=== PATIENT | female | born 1990 | race Caucasian/White ===

== ENCOUNTER 2021-06-24 04:00 | Inpatient (IN) | payer BC, SELFPAY ==
[~2021-06-24] VITALS: Ht 157.5 cm; Wt 60.8 kg
[2021-06-24] MEDS ORDERED: LR 1,000 ML IV SCH ×2 (04:30→06:30)
[2021-06-24] MEDS ORDERED: CEFAZOLIN 2 GM IVPB PREMIX 50 ML IV ONE (04:30)
[2021-06-24] MEDS ORDERED: TERBUTALINE SULFATE 1 MG/ML VIAL SUBCUT ONE (04:30)
[2021-06-24 04:56] LABS: BASOPHILS % (AUTO) 0.4 % (0.0-2.0); EOSINOPHILS % (AUTO) 0.1 % (0.0-4.0); HEMATOCRIT 38.1 % (36-48); LYMPHOCYTES # (AUTO) 2.4 K/uL (1.0-5.5); LYMPHOCYTES % (AUTO) 18.2 % (20.5-51.5); MEAN CORPUSCULAR HEMOGLOBIN 32 pg (27-31); MEAN CORPUSCULAR HGB CONC 34 % (32-36); MEAN CORPUSCULAR VOLUME 94 fL (79.0-98.0); MONOCYTES # (AUTO) 0.7 K/uL (0.0-1.0); MONOCYTES % (AUTO) 5.4 % (1.7-9.3); NEUTROPHILS # (AUTO) 9.8 K/uL (1.8-7.7); NEUTROPHILS % (AUTO) 75.9 % (40.0-70.0); PLATELET COUNT (AUTO) 135 K/uL (130-430); RED BLOOD CELL COUNT(AUTO) 4.06 MIL/uL (4.2-6.2); RED CELL DISTRIBUTION WIDTH 13.2 % (9.0-15.0)
[2021-06-24] MEDS ORDERED: TEMAZEPAM 15 MG CAPSULE PO PRN (05:15)
[2021-06-24] MEDS ORDERED: MEASLES,MUMPS&RUBELLA VACC/PF 12500 UNIT/0.5 ML VIAL SUBQ PRN (05:15)
[2021-06-24] MEDS ORDERED: LANOLIN 7 GM OINT. TP PRN (05:15)
[2021-06-24] MEDS ORDERED: HYDROcodone/ACETAMIN 5-325 MG TAB (NORCO/ VICODIN) PO PRN (05:15)
[2021-06-24] MEDS ORDERED: BISACODYL 10 MG/SUPPOSITORY RC PRN (05:15)
[2021-06-24] MEDS ORDERED: OXYTOCIN/0.9 % SODIUM CHLORIDE 1,000 ML IV ONE (05:15)
[2021-06-24] MEDS ORDERED: RHO(D) IMMUNE GLOBULIN/MALTOSE 1500 UNITS/1.3 ML (WINHRO) IM PRN (05:15)
[2021-06-24] MEDS ORDERED: ANUSOL 1 EA SUPP.RECT (PREPARATION H) RC PRN (05:15)
[2021-06-24] MEDS ORDERED: OXYCODONE/ACETAMINOPHEN 5-325 TABLET PO PRN (05:15)
[2021-06-24] MEDS ORDERED: DIPH-TET-PERTUS Vaccine 0.5 ML VIAL (ADACEL) I.M. PRN (05:15)
[2021-06-24] MEDS ORDERED: DEXAMETHASONE SOD PHOSPHATE 4 MG/ML VIAL IVP ONE (05:38)
[2021-06-24] MEDS ORDERED: ePHEDrine sulfate 50 MG/ML VIAL IVP ONE (05:38)
[2021-06-24] MEDS ORDERED: LR 1,000 ML IV.SOLN IV ONE (05:38)
[2021-06-24] MEDS ORDERED: MORPHINE SULFATE 10MG/10ML PF AMP EP ONE (05:38)
[2021-06-24] MEDS ORDERED: METOCLOPRAMIDE HCL 10 MG/2 ML VIAL IVP ONE (05:38)
[2021-06-24] MEDS ORDERED: NALOXONE HCL 1 MG in NACL 0.9% 1,000 ML IV PRN (06:30)
[2021-06-24] MEDS ORDERED: DIPHENHYDRAMINE HCL 50 MG CAPSULE PO PRN (06:30)
[2021-06-24] MEDS ORDERED: HYDROmorphone 1 MG/ML INJ. CARTRIDGE IVP PRN (06:30)
[2021-06-24] MEDS ORDERED: KETOROLAC TROMETHAMINE 60 MG/2 ML VIAL IM PRN (06:30)
[2021-06-24] MEDS ORDERED: NALOXONE HCL 0.4 MG/ML AMP (NARCAN) IVP PRN ×3 (06:30)
[2021-06-24] MEDS ORDERED: HYDROmorphone 2 MG/ML VIAL IVP PRN (06:30)
[2021-06-24] MEDS ORDERED: ONDANSETRON HCL 4 MG/2 ML VIAL IVP PRN (06:30)
[2021-06-24] MEDS ORDERED: MORPHINE SULFATE 10MG/10ML PF AMP SP SCH (06:30)
[2021-06-24] MEDS ORDERED: DIPHENHYDRAMINE INJ 50 MG/ML VIAL IVP PRN (06:30)
[2021-06-24] MEDS ORDERED: MEPERIDINE HCL/PF 25 MG/ML DISP.SYRIN IVP PRN ×2 (06:30)
[2021-06-24 11:14] LABS: BILIRUBIN,URINE NEGATIVE (NEGATIVE); BLOOD, URINE TRACE (NEGATIVE); CLARITY/URINE CLEAR (CLEAR); COLOR,URINE YELLOW (YELLOW); GLUCOSE,URINE NEGATIVE (NEGATIVE); KETONES,URINE 3+ (NEGATIVE); LEUKOCYTE ESTERASE ,URINE NEGATIVE (NEGATIVE); NITRITE, URINE NEGATIVE (NEGATIVE); PROTEIN URINE TRACE (NEGATIVE); UROBILINOGEN,URINE 0.2 (0.2-1.0)
[2021-06-24 12:49] LABS: BACTERIA,URINE None Seen /HPF (None Seen); WBC,URINE 0-3 /HPF (0-3)
[2021-06-24 17:17] VITALS: BP_SYST 140
[2021-06-24] MEDS: SENNOSIDES/DOCUSATE SODIUM 1 TAB TABLET(SENOKOT-S) PO SCH (19:54)
[2021-06-24] MEDS: OXYCODONE/ACETAMINOPHEN 5-325 TABLET PO PRN (19:54)
[2021-06-24] MEDS: LR 1,000 ML IV SCH (21:11)
[2021-06-25] MEDS: IBUPROFEN 600 MG TABLET PO SCH ×4 (00:36→18:06)
[2021-06-25] MEDS: LR 1,000 ML IV SCH (05:07)
[2021-06-25 06:54] LABS: BASOPHILS % (AUTO) 0.3 % (0.0-2.0); EOSINOPHILS % (AUTO) 0.2 % (0.0-4.0); HEMATOCRIT 35.6 % (36-48); HEMOGLOBIN 12.1 g/dL (12.0-16.0); LYMPHOCYTES % (AUTO) 16.5 % (20.5-51.5); MEAN CORPUSCULAR HEMOGLOBIN 33 pg (27-31); MEAN CORPUSCULAR HGB CONC 34 % (32-36); MEAN CORPUSCULAR VOLUME 96 fL (79.0-98.0); MONOCYTES # (AUTO) 0.6 K/uL (0.0-1.0); MONOCYTES % (AUTO) 5.1 % (1.7-9.3); NEUTROPHILS # (AUTO) 9.3 K/uL (1.8-7.7); NEUTROPHILS % (AUTO) 77.9 % (40.0-70.0); PLATELET COUNT (AUTO) 128 K/uL (130-430); RED BLOOD CELL COUNT(AUTO) 3.72 MIL/uL (4.2-6.2); RED CELL DISTRIBUTION WIDTH 13.5 % (9.0-15.0); WHITE BLOOD COUNT (AUTO) 11.9 K/uL (4.8-10.8)
[2021-06-25] MEDS: OXYCODONE/ACETAMINOPHEN 5-325 TABLET PO PRN ×4 (08:58→21:22)
[2021-06-25] MEDS: DOCUSATE SODIUM 100 MG CAPSULE PO SCH (08:58)
[2021-06-25] MEDS: SIMETHICONE 80 MG TAB.CHEW PO PRN ×2 (12:14→16:24)
[2021-06-25] MEDS: SENNOSIDES/DOCUSATE SODIUM 1 TAB TABLET(SENOKOT-S) PO SCH (20:16)
[2021-06-26] MEDS: IBUPROFEN 600 MG TABLET PO SCH ×3 (00:20→12:39)
[2021-06-26] MEDS: OXYCODONE/ACETAMINOPHEN 5-325 TABLET PO PRN ×3 (03:16→15:41)
[2021-06-26] MEDS: DOCUSATE SODIUM 100 MG CAPSULE PO SCH (17:51)
[2021-06-26] MEDS: SENNOSIDES/DOCUSATE SODIUM 1 TAB TABLET(SENOKOT-S) PO SCH (17:51)
[2021-06-26] MEDS: SIMETHICONE 80 MG TAB.CHEW PO PRN (17:51)
== END 2021-06-26 18:10 | disposition home or self-care (01) | DRG 788 ==
LOC: SPU 04:00
PROVIDERS: ADMIT Obstetrics & Gynecology; ATTEND Obstetrics & Gynecology
PROC: 10D00Z1 Extraction of Products of Conception, Low, Open Approach (ICD-10-PCS; principal; 2021-06-26)
DX: O32.1XX0 Maternal care for breech presentation, not applicable or unspecified (principal); O99.284 Endocrine, nutritional and metabolic diseases complicating childbirth; E03.9 Hypothyroidism, unspecified; O77.0 Labor and delivery complicated by meconium in amniotic fluid; Z20.822 Contact with and (suspected) exposure to COVID-19; Z3A.39 39 weeks gestation of pregnancy; Z37.0 Single live birth
CPT/HCPCS: 36415; 81000; 85025; 86592; 86886; 86900; 86901; J0690; J1100; J1885; J2274; J2310; J2590; J2765; J7030; J7120